=== PATIENT | male | born 1960 | race Caucasian/White ===

== ENCOUNTER → 2017-01-23 | Outpatient (CLI) | payer OTHER ==
--- NOTE | ~2017-01-23 | CR229 ---
[facility] A Service of [facility] RADIOLOGY TEXT RESULTS PATIENT: HOME YIN LOCATION: [facility] : 62 UNIT #: [id number] AGE: [address]: Courtney Shields MD SEX: M ORDER DR: [id number] [facility] [address] [place], [place] [address] [id number] O MR#: [id number] Acc #: [id number] NAME: HOEM YIN : 1960 SEX: M STUDY DATE/TIME: 01/23/2017 18:56 UNIT: [facility] ROOM: STUDY DESCRIPTION: CR Shoulder Min 2 View Lt Attending Physician: Courtney Shields M.D. Referring Physician: Courtney Shields M.D. Ordering Physician: Courtney Shields M.D. Primary Care Physician: Courtney Shields M.D. MEDICAL IMAGING REPORT This report is preliminary unless electronic signature is present EXAM Left shoulder, 01/23 at 18:56. INDICATIONS Shoulder pain and decreased range of motion for 1 month. No trauma. FINDINGS 3 views of the left shoulder were obtained. No comparison. There is AC joint arthropathy, but there is no AC joint separation. There is no fracture or glenohumeral dislocation. IMPRESSION AC joint arthropathy, otherwise negative left shoulder. Dictated by... Eddy Sommers Jr., M.D. THIS IS AN ELECTRONICALLY VERIFIED REPORT Eddy Sommers Jr., M.D. at 01/24/2017 12:34 PM FCO/brandan TD: 01/24/2017 07:17 JOB #: [id number] MEDICAL IMAGING REPORT Page 1 of 1 COPY
== END | disposition home or self-care (01) ==
LOC: CRAD 18:44
DX: M25.512 Pain in left shoulder (principal); M19.012 Primary osteoarthritis, left shoulder
CPT/HCPCS: 73030

== ENCOUNTER → 2017-04-09 | Outpatient (CLI) | payer OTHER ==
--- NOTE | ~2017-04-09 | MR164 ---
[facility] A Service of [facility] & [facility] RADIOLOGY TEXT RESULTS PATIENT: JR HOME YIN LOCATION: [facility] : 62 UNIT #: [id number] AGE: [address]: RASHARD SO SEX: M ORDER DR: [id number] [facility] [address] [place], [place] [address] [id number] O MR#: [id number] Acc #: [id number] NAME: HOME YIN : 1960 SEX: M STUDY DATE/TIME: 04/09/2017 17:52 UNIT: [facility] ROOM: STUDY DESCRIPTION: MR Shoulder Wo Contrast Lt Attending Physician: Manpreet Celeste Referring Physician: Manpreet Celeste Ordering Physician: Manpreet Celeste Primary Care Physician: Courtney Shields M.D. MRI CENTER REPORT This report is preliminary unless electronic signature is present. EXAM MRI left shoulder 04/09/2017. COMPARISON STUDIES Left shoulder radiographs 01/23/2017. HISTORY History sheet states left shoulder pain. Rule out torn rotator cuff. History sheet states chronic left shoulder pain from playing the drums for years and lifting objects at work. Painful to raise arm behind the head. No shoulder surgery or specific injury. FINDINGS There is tmow-ce-rmwiqmnp hypertrophic AC joint arthrosis with largely superiorly directed capsuloligamentous thickening and osteophyte formation. Coracoclavicular and coracoacromial ligaments are intact. There is a moderate diffuse supraspinatus and mild infraspinatus tendinosis with edema and/or minimal cyst formation extending to the infraspinatus myotendinous junction. There is a high-grade partial undersurface insertional tear of the anterior two-thirds of the supraspinatus tendon at the footprint insertion. The tear measures 11 mm AP x 8 mm transverse. There is minimal inflammation in the subacromial - subdeltoid bursa. Subscapularis and teres minor tendons are normal. Rotator cuff muscles are normal. Biceps anchor and biceps tendon are normal. No labral pathology is demonstrated. A small subarticular cyst of the inferior glenoid may reflect sequela of minimal arthrosis. Glenohumeral joint demonstrates no effusion or visible high-grade chondromalacia. No loose bodies noted. There is no marrow lesion or fracture. [facility]. [facility] A Service of [facility] RADIOLOGY TEXT RESULTS PATIENT: JR HOME YIN LOCATION: [facility] : 62 UNIT #: [id number] AGE: [address]: RASHARD SO SEX: M ORDER DR: IMPRESSION 1. Supraspinatus infraspinatus tendinosis detailed above with an associated 11 x 8 mm high-grade partial articular undersurface sided (anterior two-third) supraspinatus tendon tear. It is at least 50% in tendon thickness. There is no full-thickness cuff tear. 2. AC joint arthrosis. 3. Tiny subarticular cyst in the anterior inferior glenoid probably reflecting sequela of minimal arthrosis, although there is no high-grade chondromalacia visualized. 4. Biceps and labrum are unremarkable. Dictated by... Genny Tello M.D. THIS IS AN ELECTRONICALLY VERIFIED REPORT Genny Tello M.D. at 04/13/2017 8:45 AM DILLON/benedict TD: 04/10/2017 13:35 JOB #: [id number] MRI CENTER REPORT Page 1 of 1 COPY
== END | disposition home or self-care (01) ==
LOC: CMRI 17:23
DX: M25.512 Pain in left shoulder (principal); M75.82 Other shoulder lesions, left shoulder; M75.112 Incomplete rotator cuff tear or rupture of left shoulder, not specified as traumatic; M19.012 Primary osteoarthritis, left shoulder
CPT/HCPCS: 73221

== ENCOUNTER → 2017-06-27 | Outpatient (CLI) | payer OTHER ==
--- NOTE | ~2017-06-27 | CR63 ---
[facility] A Service of [facility] RADIOLOGY TEXT RESULTS PATIENT: HOME YIN JR LOCATION: [facility] : 62 UNIT #: [id number] AGE: [address]: Linda Coates APRN SEX: M ORDER DR: [id number] [facility] [address] [place], [place] [address] [id number] O MR#: [id number] Acc #: [id number] NAME: HOME YIN : 1960 SEX: M STUDY DATE/TIME: 06/27/2017 16:39 UNIT: [facility] ROOM: STUDY DESCRIPTION: CR Chest 2 View Attending Physician: Linda Coates Aprn Referring Physician: Linda Coates Aprn Ordering Physician: Linda Coates Aprn Primary Care Physician: Courtney Shields M.D. MEDICAL IMAGING REPORT This report is preliminary unless electronic signature is present EXAM PA and lateral chest DATE 06/27/2017 HISTORY 57-year-old male with chest pain, cough and congestion, which began 10 months ago. 40-year smoking history. COMPARISON None. FINDINGS No acute airspace disease. No pleural effusion or pneumothorax or acute osseous abnormality. IMPRESSION 1. Normal PA and lateral chest. Dictated by... Jeannine Mariee M.D. THIS IS AN ELECTRONICALLY VERIFIED REPORT Jeannine Mariee M.D. at 06/29/2017 6:16 AM RADHA/brandan TD: 06/29/2017 06:00 JOB #: [id number] MEDICAL IMAGING REPORT Page 1 of 1 COPY
== END | disposition home or self-care (01) ==
LOC: CRAD 16:19
DX: R05 Cough (principal)
CPT/HCPCS: 71020